=== PATIENT | male | born 1975 | race Caucasian/White ===

== ENCOUNTER 2021-01-09 09:57 | Emergency (ER) | payer BC, SELFPAY ==
[2021-01-09 10:05] VITALS: BP 160/97; PULSE 91; RESP 18; TEMP 37.3; O2SAT 100
--- NOTE | 2021-01-09 10:28 | ED.MALEGU ---
HPI - Male Genitourinary General Chief complaint: Urogenital-Male Stated complaint: painful urination Time Seen by Provider: 01/09/21 10:15 Source: patient, RN notes reviewed and old records reviewed Mode of arrival: ambulatory Limitations: no limitations History of Present Illness HPI Narrative: 45 year old male who [facility] with one week duration of burning with urination, urinary frequency with urgency and decrease amounts. Patient states that on day 1 he experienced chills and on day 2 he had some back pain with none since. Today he stated his urine was really dark this morning but has lightened up as day has progressed. Patient states that he had a UTI about 1 year ago. Patient denies any nausea or vomiting or any abdominal pain he reports no penile discharge or testicular pain or any concern for STD's. MD Complaint: dysuria Onset (ago): week(s) (1) Duration: constant Severity scale (1-10): 6 Related Data Allergies Allergy/AdvReac Type Severity Reaction Status Date / Time No Known Allergies Allergy Verified 01/09/21 10:17 Review of Systems Review of Systems: Narrative: CONSTITUTIONAL: Denies any present fever, chills, or sweats. EYES: Denies visual changes, redness, or discharge. ENT: Denies rhinorrhea, congestion, sore throat, or otalgia. CARDIOVASCULAR: Denies chest pain, palpitations, or edema. RESPIRATORY: Denies cough or dyspnea. GASTROINTESTINAL: Denies abdominal pain, nausea, vomiting, or diarrhea. GENITOURINARY: Positive for dysuria no visible hematuria. SKIN: Denies rash or itching. MUSCULOSKELETAL: Denies any present back pain, joint pain, or myalgia. NEUROLOGIC: Denies headache, numbness, or weakness. PSYCHIATRIC: Denies anxiety or depression. All systems reviewed & are unremarkable except as noted in HPI and below PMFSH Past Medical History Medical History (Updated 01/10/21 @ 10:18 by Briigtte Christiansen NP) UTI (urinary tract infection) Surgical History Surgical History (Updated 01/10/21 @ 10:21 by Brigitte Christiansen NP) History of ankle surgery Right ankle ORIF History of hernia repair Family History Family History (Updated 01/10/21 @ 10:22 by Brigitte Christiansen NP) Mother Heart disease Diabetes mellitus Hypertension Father Diabetes mellitus Hypertension Grandparent Diabetes mellitus Social History Social History (Updated 01/10/21 @ 10:23 by Brigitte Christiansen NP) Tobacco type: e-cigarettes/vaping Alcohol intake: current Alcohol use details: social Substance use: never Living arrangements: with family Gender identity (if verbalized by the patient): Male Comments At time of signature, agree with nursing past medical, surgical, social and family history. There is no relevant family history pertinent to the presenting complaint Exam Narrative: Exam Narrative: GENERAL: Well-appearing, well-nourished, and in no acute distress. HEAD: Normocephalic, atraumatic. EYES: PERRLA and EOMI. ENT: Nares clear, no rhinorrhea or epistaxis. Mucous membranes moist. NECK: Supple.no lymphadenopathy CHEST: Clear to auscultation. No respiratory distress.SAO2 100% on room air HEART: Regular rate and rhythm. No murmur heard. Normal peripheral pulses. ABDOMEN: Soft, nontender to palpation, nondistended, normal active bowel sounds.no CVA tenderness on examination, burning with urination, urgency, frequency, no penile dicharge or any testicular pain. EXTREMITIES: Normal range of motion. No edema. SKIN: Warm, dry, no rash. NEURO: No focal deficits. Alert and oriented x3. Course Vital Signs Vital signs: Vital Signs Temperature 37.3 C 01/09/21 10:05 Pulse Rate 91 01/09/21 10:05 Respiratory Rate 18 01/09/21 10:05 Blood Pressure 160/97 H 01/09/21 10:05 Pulse Oximetry 100 01/09/21 10:05 Temperature 37.3 C 01/09/21 10:05 Pulse Rate 91 01/09/21 10:05 Respiratory Rate 18 01/09/21 10:05 Blood Pressure 160/97 H 01/09/21 10:05 Pulse Oximetry 1
== END 2021-01-09 10:50 | disposition home or self-care (01) ==
PROVIDERS: Emergency Provider Registered Nurse
DX: N39.0 Urinary tract infection, site not specified (principal); F17.200 Nicotine dependence, unspecified, uncomplicated
CPT/HCPCS: 81003; 87077; 87086; 87088; 87186; 99213; G0463

== ENCOUNTER 2024-06-19 11:06 | Outpatient (CLI) | payer BC, SELFPAY ==
[2024-06-19 19:08] LABS: Alanine Aminotransferase 35 U/L (6-50); Albumin Level 4.4 g/dL (3.5-5.1); Alkaline Phosphatase 80 U/L (38-126); Anion Gap 8 mmol/L (4-12); Aspartate Amino Transferase 53 U/L (17-59); Bilirubin,Total 1.1 mg/dL (0.2-1.3); Blood Urea Nitrogen 20 mg/dL (9-20); Calcium 9.4 mg/dL (8.4-10.2); Carbon Dioxide 34 mmol/L (22-30); Chloride 97 mmol/L (98-107); Cholesterol 135 mg/dL (0-200); Estimated Glomerular Filt Rate > 60; Glucose 70 mg/dL (65-110); HDL Direct 49 mg/dL; Sodium 139 mmol/L (137-145); Triglycerides 108 mg/dL (<150)
[2024-06-19 19:11] LABS: Hematocrit 48.5 % (42.0-52.0); Hemoglobin 15.9 g/dL (14.0-18.0); Mean Corpuscular HGB Conc 32.8 g/dl (32-36); Mean Corpuscular Hemoglobin 30.2 pg (26-34); Mean Corpuscular Volume 92.2 fl (80-100); Mean Platelet Volume 9.1 fl (7.4-10.4); Platelet Count Result 174 k/mm3 (150-375); Red Blood Count 5.26 M/mm3 (4.6-6.20); Red Cell Distribution Width 12.7 % (11.5-14.5); White Blood Count 6.4 K/mm3 (4.5-10.0)
[2024-06-19 19:19] LABS: LDL Cholesterol Direct 58 mg/dL
[2024-06-19 19:36] LABS: Prostate Specific Antigen 0.5 ng/mL (< OR = 4.0)
== END 2024-06-19 11:07 | disposition home or self-care (01) ==
PROVIDERS: PCP Nurse Practitioner Adult Health; Visit Provider Nurse Practitioner Adult Health
DX: Z13.9 Encounter for screening, unspecified (principal); Z12.5 Encounter for screening for malignant neoplasm of prostate
CPT/HCPCS: 36415; 80053; 80061; 84153; 84443; 85027; G0103